=== PATIENT | female | born 1980 | race African-American/Black ===

== ENCOUNTER → 2021-07-15 | Outpatient (CLI) | payer BC ==
--- NOTE | 2021-07-15 11:00 | KCIC ---
EXAM: CT CHEST WITHOUT CONTRAST (LDCT LUNG CANCER SCREENING). HISTORY: Risk factors for pulmonary malignancy. Significant smoking history. TECHNIQUE: CT of the chest was performed without intravenous contrast using a low-dose lung screening protocol. Findings analysis is based on ACR Lung-RADS v1.1. *One or more of the following individual ized dose reduction techniques were utilized for this examination: 1. Automated exposure control. 2. Adjustment of the mA and/or kV according to patient size. 3. Use of iterative reconstruction technique. COMPARISON: None. FINDINGS: No concerning pulmonary nodules are identified. No focal infiltrate, pneumothorax, or effusion is see n. Heart size is normal. No pathologically enlarged mediastinal adenopathy is identified. Limited sunshine ging of the upper abdomen demonstrates no acute abnormality. No acute osseous changes are seen. IMPRESSION/RECOMMENDATION: 1. ACR Lung-RADS category: 1 2. Continue annual screening with LDCT in 12 months. Electronically signed by: Ian Champagne MD (07/15/2021 10:57 AM) [id number]
== END ==
LOC: KCIC CT 09:49
PROVIDERS: ATTEND Nurse Practitioner Family
DX: F17.210 Nicotine dependence, cigarettes, uncomplicated (principal)
CPT/HCPCS: 71271